=== PATIENT | female | born 1980 | race Caucasian/White ===

== ENCOUNTER 2016-08-21 00:25 | Emergency (ER) | payer OTHER ==
[2016-08-21] MEDS ORDERED: LIDOCAINE 2% W/EPIN INJ 20ML **PRES FREE As Ordered ONE (00:55)
[2016-08-21] MEDS ORDERED: DERMABOND TOPICAL SKIN ADHESIVE As Ordered ONE (00:55)
--- NOTE | 2016-08-21 02:06 | EDDOCDS ---
Physician Documentation [facility] Name: Nannette Ramírez Age: 36 yrs Sex: Female : 1980 Arrival Date: 08/21/2016 Time: 00:25 Bed Triage 1 Private MD: Disposition: 08/21/16 01:56 Patient has left against medical advice. Impression: Laceration without foreign body of other part of head - #1 left eye brow, complicated #2 nasal tissue, Unspecified injury of head, Alcohol abuse with intoxication. - Patients states they are going to Home/Self Care. - Condition is Fair. - Discharge Instructions: Alcohol Use Disorder, Head Injury, Adult, Facial Laceration. Medication Reconciliation, Local Pharmacy Hours form. Follow up: Private Physician; When: Call to arrange an appointment; Reason: Recheck today's complaints, Continuance of care. - Problem is new. - Symptoms are unchanged. - Notes: have sutures removed in 5-7 days, dermabond will dissolve on its own, you are signing out against medical advice and are aware of the risks of possible bleeding in head and including . return to ER at any time if further care is desired Historical: - Allergies: Wellbutrin; - Home Meds: 1. vitamins daily - PMHx: none; - PSHx: none; - Social history: Smoking status: Patient uses tobacco products, heavy tobacco smoker. No barriers to communication noted, The patient speaks fluent Mauritanian, Speaks appropriately for age. - Family history: Not pertinent. - : The pt / caregiver states he / she is not on anticoagulants. Home medication list is obtained from the patient. - Exposure Risk Screening:: None identified. 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 7 in. (170.18 cm) (R); Pain 9/10; 00:30 Body Mass Index 22.87 (66.22 kg, 170.18 cm) [facility] Procedures: :44 Laceration repair:. mo1 Laceration: 01:44 Wound Repair of 3cm ( 1.2in ) full thickness laceration to left eye medial eye brow. mo1 Irregularly shaped.. Distal neuro/vascular/tendon intact. Anesthesia: Local anesthetic administered with 2 mls of 1% lidocaine w/ Epi. Wound prep: Moderate cleansing with hibiclenz by provider. Subcutaneous tissue closed with 1 x 5-0 Vicryl using Simple interrupted sutures. Skin closed with 9 x 6-0 Prolene using Simple interrupted sutures. Dressed with Bacitracin. Patient tolerated well. MDM: 00:54 Dermabond to bedside ordered. mo1 00:54 Lidocaine-Epinephrine 2 %-1:100,000 10 ml Infiltration once; to bedside ordered. mo1 00:54 Dressing ordered. mo1 01:31 CT Head Without Contrast Ordered. EDWY 01:58 Financial registration complete. [facility] Administered Medications: 00:56 Drug: Lidocaine-Epinephrine 10 ml [lidocaine 20 mg/mL (2 %)-epinephrine 1:100,000 jmb injection solution (10 mL)] {Note: administered by Luis Armando AC.} Route: Infiltration; Signatures: Dispatcher [employer] Luis Armando Reddy PA PA mo1 John FranksRN RN Lavonne ThomasRN RN Deisi Villalobos [facility]
--- NOTE | 2016-08-21 02:06 | EDDOCDS ---
Nurse's Notes [facility] Name: Nannette Ramírez Age: 36 yrs Sex: Female : 1980 Arrival Date: 08/21/2016 Time: 00:25 Bed Triage 1 Private MD: Diagnosis: Laceration without foreign body of other part of head-#1 left eye brow, complicated #2 nasal tissue;Unspecified injury of head;Alcohol abuse with intoxication Presentation: 08/21 00:28 Presenting complaint: Patient states: Patient fell, Patient hit ice. Patient reports jmb incident happened an hour ago. Patient stated that she tried to stitch area herself but did not. Adult Sepsis Screening: The patient does not have new or worsening altered mentation. Patient's respiratory rate is less than 22. Systolic blood pressure is greater than 100. Patient has a qSOFA score of 0- Negative Sepsis Screen. Suicide/Homicide risk assessment- the patient denies having any suicidal and/or homicidal ideations and does not present with any other emotional, behavioral or mental health complaints. 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 Transition of care: patient was not received from another setting of care. 00:28 Acuity: ERIKA Level 4 jmb 00:28 Method Of Arrival: Walkin/Carried/Asstd jmb Triage Assessment: 00:30 General: Appears in no apparent distress, Behavior is appropriate for age, cooperative. jmb Pain: Location: above left eye Pain currently is 9 out of 10 on a pain scale. HIV screening NA for this visit Offered previously. Neurological: Level of Consciousness is awake, alert, obeys commands, Oriented to person, place, time, Speech is normal, Facial symmetry appears normal, Facial symmetry: tongue is midline. Respiratory: Airway is patent Respiratory effort is even, unlabored, Respiratory pattern is regular, symmetrical. Derm: Skin laceration to forehead above left eye Skin is pink, warm & dry. Musculoskeletal: Range of motion intact in all extremities. Injury Description: Laceration sustained to above left eye is jagged, is bleeding a small amount. 00:34 General: Smells of alcohol. 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 vitamins daily - PMHx: none; - PSHx: none; - Social history: Smoking status: Patient uses tobacco products, heavy tobacco smoker. No barriers to communication noted, The patient speaks fluent Irish, Speaks appropriately for age. - Family history: Not pertinent. - : The pt / caregiver states he / she is not on anticoagulants. Home medication list is obtained from the patient. - Exposure Risk Screening:: None identified. Screenin:43 Screening information is obtained from the patient. Fall risk: No risks identified. ead Assistance ADL's: requires no assistance with activities of daily living. Abuse/DV Screen: The patient / caregiver reports he/she is: not in a situation that causes fear, pain or injury. Nutritional screening: No deficits noted. Advance Directives: Currently, there is no health care proxy. There is no Power of Casing Wringer Operator. home support is adequate. Assessment: 01:43 General: Appears in no apparent distress, comfortable, Behavior is appropriate for age, ead cooperative. Neurological: Level of Consciousness is awake, alert, Oriented to person, place, time. Respiratory: No deficits noted. Derm: Skin is pink, warm & dry. laceration repaired to left eyebrow by PA. Dermabond applied to laceration to bridge of nose by PA. no bleeding noted. 02:03 General: pt notified nurse that she wanted to leave. Pt advised to wait until CT ead results come back. Pt states "I just wanna get home, the road are getting bad and I live way out there." Provider notified. Pt willing to sign AMA form. . Social Work Consult: 02:01 LWBS/AMA AMA: Patient is refusing further stabilizing treatment at [facility], although cl offered treatment regardless of method of payment or ability to pay. Patient is aware that this action is being undertaken against the advice of the medical staff at [facility]. Pt. has capacity to understand the potential consequences of this choice. pt did notify ED staff. Patient / guardian did sign Refusal of Services form. Pt left before being seen by PSA. Vital Signs: 00:30 BP 141 / 92; Pulse 86; Resp 18; Temp 97.0(T); Pulse Ox 96% on R/A; Weight 66.22 kg (R); jmb Height 5 ft. 7 in. (170.18 cm) (R); Pain 9/10; 00:30 Body Mass Index 22.87 (66.22 kg, 170.18 cm) [facility] Vitals: 00:30 Log In Time: August 21, 2016 at 00:27. [facility] ED Course: 00:27 Patient visited by Teresa Gallego, Reg. hs2 00:27 Patient moved to Waiting hs2 00:29 Triage Initiated jmb 00:34 Patient moved to Triage 1 jmb 00:36 Luis Armando Potter PA is PHCP. mo1 00:36 Ernesto Mcmanus DO is Attending Physician. mo1 01:02 Patient visited by Luis Armando Potter PA. mo1 01:41 Patient visited by Lavonne Hightower RN. ead 01:43 The patient / caregiver is instructed regarding the plan of care and ED course. ead 01:43 No IV's were initiated during this patient's visit. No procedures done that require ead assistance. Administered Medications: 00:56 Drug: Lidocaine-Epinephrine 10 ml [lidocaine 20 mg/mL (2 %)-epinephrine 1:100,000 jmb injection solution (10 mL)] {Note: administered by Luis Armando AC.} Route: Infiltration; Order Results: There are currently no results for this order. Outcome: 01:44 CT Study completed. ead 01:56 Patient left against medical advice. mo1 02:04 Discharge Assessment: Patient awake and alert. obeys commands, Oriented to person, ead place and time. patient administered narcotics - no. The following High Risk Discharge criteria are identified: Yes, Pt left AMA. risk of leaving and benefits of staying explained with pt. pt understands but still wants to leave. PA aware. . The patient is leaving AMA: AMA form signed, Notification of AMA status is made to the charge nurse, the social media assistant, the ED attending physician. Condition: improved. Discharge instructions given to patient, Instructed on discharge instructions, follow up and referral plans. Demonstrated understanding of instructions, Pt was receptive of discharge instructions/ teaching. Property sent home with patient. 02:05 Patient left the ED. ead Signatures: Sarath Angel, PSA PSA cl Luis Armando Potter PA PA mo1 John Franks RN RN jmb Dunaway, Emily,RONEN HARDWICK ead Teresa Gallego, Reg Reg hs2 MTDD
--- NOTE | 2016-08-23 03:06 | EDDOCDS ---
Physician Documentation [facility] Name: Nannette Ramírez Age: 36 yrs Sex: Female : 1980 Arrival Date: 08/21/2016 Time: 00:25 Bed Triage 1 Private MD: Disposition: 08/21/16 01:56 Patient has left against medical advice. Impression: Laceration without foreign body of other part of head - #1 left eye brow, complicated #2 nasal tissue, Unspecified injury of head, Alcohol abuse with intoxication. - Patients states they are going to Home/Self Care. - Condition is Fair. - Discharge Instructions: Alcohol Use Disorder, Head Injury, Adult, Facial Laceration. Medication Reconciliation, Local Pharmacy Hours form. Follow up: Private Physician; When: Call to arrange an appointment; Reason: Recheck today's complaints, Continuance of care. - Problem is new. - Symptoms are unchanged. - Notes: have sutures removed in 5-7 days, dermabond will dissolve on its own, you are signing out against medical advice and are aware of the risks of possible bleeding in head and including . return to ER at any time if further care is desired Historical: - Allergies: Wellbutrin; - Home Meds: 1. vitamins daily - PMHx: none; - PSHx: none; - Social history: Smoking status: Patient uses tobacco products, heavy tobacco smoker. No barriers to communication noted, The patient speaks fluent Italian, Speaks appropriately for age. - Family history: Not pertinent. - : The pt / caregiver states he / she is not on anticoagulants. Home medication list is obtained from the patient. - Exposure Risk Screening:: None identified. 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 7 in. (170.18 cm) (R); Pain 9/10; 00:30 Body Mass Index 22.87 (66.22 kg, 170.18 cm) [facility] Procedures: :44 Laceration repair:. mo1 Laceration: 01:44 Wound Repair of 3cm ( 1.2in ) full thickness laceration to left eye medial eye brow. mo1 Irregularly shaped.. Distal neuro/vascular/tendon intact. Anesthesia: Local anesthetic administered with 2 mls of 1% lidocaine w/ Epi. Wound prep: Moderate cleansing with hibiclenz by provider. Subcutaneous tissue closed with 1 x 5-0 Vicryl using Simple interrupted sutures. Skin closed with 9 x 6-0 Prolene using Simple interrupted sutures. Dressed with Bacitracin. Patient tolerated well. MDM: 00:54 Dermabond to bedside ordered. mo1 00:54 Lidocaine-Epinephrine 2 %-1:100,000 10 ml Infiltration once; to bedside ordered. mo1 00:54 Dressing ordered. mo1 01:31 CT Head Without Contrast Ordered. EDMS 01:58 Financial registration complete. [facility] 02:12 [facility] Payment Agreement was scanned into [employer] and attached to record. [facility] 08/22 07:41 T-Sheet-- Draft Copy was scanned into [employer] and attached to record. 12:20 Refusal of Services was scanned into [employer] and attached to record. gb Administered Medications: 08/21 00:56 Drug: Lidocaine-Epinephrine 10 ml [lidocaine 20 mg/mL (2 %)-epinephrine 1:100,000 jmb injection solution (10 mL)] {Note: administered by Luis Armando AC.} Route: Infiltration; Signatures: Dispatcher [employer] EDNY Delilah Mclaughlin, Reg Reg Luis Armando Potter PA PA mo1 John Franks RN RN jmb Dunaway, Emily, RN RN ead Hook, Sandra [facility] The chart was reviewed and I authenticate all verbal orders and agree with the evaluation and treatment provided.Attachments: 02:12 [facility] Payment Agreement [facility] 08/22 07:41 T-Sheet-- Draft Copy Chart Complete MTDD
--- NOTE | 2016-08-23 03:06 | EDDOCDS ---
Physician Documentation [facility] Name: Nannette Ramírez Age: 36 yrs Sex: Female : 1980 Arrival Date: 08/21/2016 Time: 00:25 Bed Triage 1 Private MD: Disposition: 08/21/16 01:56 Patient has left against medical advice. Impression: Laceration without foreign body of other part of head - #1 left eye brow, complicated #2 nasal tissue, Unspecified injury of head, Alcohol abuse with intoxication. - Patients states they are going to Home/Self Care. - Condition is Fair. - Discharge Instructions: Alcohol Use Disorder, Head Injury, Adult, Facial Laceration. Medication Reconciliation, Local Pharmacy Hours form. Follow up: Private Physician; When: Call to arrange an appointment; Reason: Recheck today's complaints, Continuance of care. - Problem is new. - Symptoms are unchanged. - Notes: have sutures removed in 5-7 days, dermabond will dissolve on its own, you are signing out against medical advice and are aware of the risks of possible bleeding in head and including . return to ER at any time if further care is desired Historical: - Allergies: Wellbutrin; - Home Meds: 1. vitamins daily - PMHx: none; - PSHx: none; - Social history: Smoking status: Patient uses tobacco products, heavy tobacco smoker. No barriers to communication noted, The patient speaks fluent Syrian, Speaks appropriately for age. - Family history: Not pertinent. - : The pt / caregiver states he / she is not on anticoagulants. Home medication list is obtained from the patient. - Exposure Risk Screening:: None identified. 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 7 in. (170.18 cm) (R); Pain 9/10; 00:30 Body Mass Index 22.87 (66.22 kg, 170.18 cm) [facility] Procedures: :44 Laceration repair:. mo1 Laceration: 01:44 Wound Repair of 3cm ( 1.2in ) full thickness laceration to left eye medial eye brow. mo1 Irregularly shaped.. Distal neuro/vascular/tendon intact. Anesthesia: Local anesthetic administered with 2 mls of 1% lidocaine w/ Epi. Wound prep: Moderate cleansing with hibiclenz by provider. Subcutaneous tissue closed with 1 x 5-0 Vicryl using Simple interrupted sutures. Skin closed with 9 x 6-0 Prolene using Simple interrupted sutures. Dressed with Bacitracin. Patient tolerated well. MDM: 00:54 Dermabond to bedside ordered. mo1 00:54 Lidocaine-Epinephrine 2 %-1:100,000 10 ml Infiltration once; to bedside ordered. mo1 00:54 Dressing ordered. mo1 01:31 CT Head Without Contrast Ordered. EDMS 01:58 Financial registration complete. [facility] 02:12 [facility] Payment Agreement was scanned into [employer] and attached to record. [facility] 08/22 07:41 T-Sheet-- Draft Copy was scanned into [employer] and attached to record. 12:20 Refusal of Services was scanned into [employer] and attached to record. gb Administered Medications: 08/21 00:56 Drug: Lidocaine-Epinephrine 10 ml [lidocaine 20 mg/mL (2 %)-epinephrine 1:100,000 jmb injection solution (10 mL)] {Note: administered by Luis Armando AC.} Route: Infiltration; Signatures: Dispatcher [employer] EDOH Delilah Mclaughlin, Reg Reg Luis Armando Potter PA PA mo1 John Franks RN RN jmb Dunaway, Emily, RN RN ead Hook, Sandra [facility] The chart was reviewed and I authenticate all verbal orders and agree with the evaluation and treatment provided.Attachments: 02:12 [facility] Payment Agreement [facility] 08/22 07:41 T-Sheet-- Draft Copy Chart Complete MTDD
--- NOTE | 2016-08-23 03:06 | EDDOCDS ---
Nurse's Notes [facility] Name: Nannette Ramírez Age: 36 yrs Sex: Female : 1980 Arrival Date: 08/21/2016 Time: 00:25 Bed Triage 1 Private MD: Diagnosis: Laceration without foreign body of other part of head-#1 left eye brow, complicated #2 nasal tissue;Unspecified injury of head;Alcohol abuse with intoxication Presentation: 08/21 00:28 Presenting complaint: Patient states: Patient fell, Patient hit ice. Patient reports jmb incident happened an hour ago. Patient stated that she tried to stitch area herself but did not. Adult Sepsis Screening: The patient does not have new or worsening altered mentation. Patient's respiratory rate is less than 22. Systolic blood pressure is greater than 100. Patient has a qSOFA score of 0- Negative Sepsis Screen. Suicide/Homicide risk assessment- the patient denies having any suicidal and/or homicidal ideations and does not present with any other emotional, behavioral or mental health complaints. Status: Patient is not a food service or dependent. Transition of care: patient was not received from another setting of care. 00:28 Acuity: ERIKA Level 4 jmb 00:28 Method Of Arrival: Walkin/Carried/Asstd jmb Triage Assessment: 00:30 General: Appears in no apparent distress, Behavior is appropriate for age, cooperative. jmb Pain: Location: above left eye Pain currently is 9 out of 10 on a pain scale. HIV screening NA for this visit Offered previously. Neurological: Level of Consciousness is awake, alert, obeys commands, Oriented to person, place, time, Speech is normal, Facial symmetry appears normal, Facial symmetry: tongue is midline. Respiratory: Airway is patent Respiratory effort is even, unlabored, Respiratory pattern is regular, symmetrical. Derm: Skin laceration to forehead above left eye Skin is pink, warm & dry. Musculoskeletal: Range of motion intact in all extremities. Injury Description: Laceration sustained to above left eye is jagged, is bleeding a small amount. 00:34 General: Smells of alcohol. 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 vitamins daily - PMHx: none; - PSHx: none; - Social history: Smoking status: Patient uses tobacco products, heavy tobacco smoker. No barriers to communication noted, The patient speaks fluent Togolese, Speaks appropriately for age. - Family history: Not pertinent. - : The pt / caregiver states he / she is not on anticoagulants. Home medication list is obtained from the patient. - Exposure Risk Screening:: None identified. Screenin:43 Screening information is obtained from the patient. Fall risk: No risks identified. ead Assistance ADL's: requires no assistance with activities of daily living. Abuse/DV Screen: The patient / caregiver reports he/she is: not in a situation that causes fear, pain or injury. Nutritional screening: No deficits noted. Advance Directives: Currently, there is no health care proxy. There is no Power of Hand Nailer. home support is adequate. Assessment: 01:43 General: Appears in no apparent distress, comfortable, Behavior is appropriate for age, ead cooperative. Neurological: Level of Consciousness is awake, alert, Oriented to person, place, time. Respiratory: No deficits noted. Derm: Skin is pink, warm & dry. laceration repaired to left eyebrow by PA. Dermabond applied to laceration to bridge of nose by PA. no bleeding noted. 02:03 General: pt notified nurse that she wanted to leave. Pt advised to wait until CT ead results come back. Pt states "I just wanna get home, the road are getting bad and I live way out there." Provider notified. Pt willing to sign AMA form. . Social Work Consult: 02:01 LWBS/AMA AMA: Patient is refusing further stabilizing treatment at [facility], although cl offered treatment regardless of method of payment or ability to pay. Patient is aware that this action is being undertaken against the advice of the medical staff at [facility]. Pt. has capacity to understand the potential consequences of this choice. pt did notify ED staff. Patient / guardian did sign Refusal of Services form. Pt left before being seen by PSA. Vital Signs: 00:30 BP 141 / 92; Pulse 86; Resp 18; Temp 97.0(T); Pulse Ox 96% on R/A; Weight 66.22 kg (R); jmb Height 5 ft. 7 in. (170.18 cm) (R); Pain 9/10; 00:30 Body Mass Index 22.87 (66.22 kg, 170.18 cm) [facility] Vitals: 00:30 Log In Time: August 21, 2016 at 00:27. [facility] ED Course: 00:27 Patient visited by Teresa Gallego Reg. hs2 00:27 Patient moved to Waiting hs2 00:29 Triage Initiated jmb 00:34 Patient moved to Triage 1 jmb 00:36 Luis Armando Potter PA is PHCP. mo1 00:36 Ernesto Mcmanus DO is Attending Physician. mo1 01:02 Patient visited by Luis Armando Potter PA. mo1 01:41 Patient visited by Lavonne Hightower RN. ead 01:43 The patient / caregiver is instructed regarding the plan of care and ED course. ead 01:43 No IV's were initiated during this patient's visit. No procedures done that require ead assistance. 02:10 Patient name changed from Nannette\\S\\\\S\\Darrell\\S\\ to Nannette\\S\\Sherron\\S\\Darrell. EDMS 02:12 [facility] Payment Agreement was scanned into [employer] and attached to record. [facility] 04:01 CT Head Without Contrast Returned. EDMS 08/22 07:41 T-Sheet-- Draft Copy was scanned into [employer] and attached to record. 12:20 Refusal of Services was scanned into [employer] and attached to record. gb Administered Medications: 08/21 00:56 Drug: Lidocaine-Epinephrine 10 ml [lidocaine 20 mg/mL (2 %)-epinephrine 1:100,000 jmb injection solution (10 mL)] {Note: administered by Luis Armando AC.} Route: Infiltration; Attachments: 12:20 Refusal of Services gb Order Results: Radiology Order: CT Head Without Contrast Test: CT Head Without Contrast REASON FOR EXAMINATION: Trauma; ; CLINICAL HISTORY: Head trauma.; TECHNIQUE: Multiple axial brain CT scan sections were obtained from base to vertex without contrast a; dministration.; COMMENTS:; There is no evidence of skull fracture.; The study shows normal configuration of sella turcica. There are no intra or extra-axial collections.; There is no mass effect or midline shift. There is no evidence of hematoma formation. No hydrocephal; us is present. No abnormal calcifications are noted.; No significant abnormalities are seen either in the posterior fossa or supratentorial compartment.; The sinuses and mastoid air cells are patent.; IMPRESSION:; No evidence of acute intracranial pathology. No intracranial hemorrhage or skull fracture.; Thank you for your kind referral of this patient.; ; Outcome: 08/21 01:44 CT Study completed. ead 01:56 Patient left against medical advice. mo1 02:04 Discharge Assessment: Patient awake and alert. obeys commands, Oriented to person, ead place and time. patient administered narcotics - no. The following High Risk Discharge criteria are identified: Yes, Pt left AMA. risk of leaving and benefits of staying explained with pt. pt understands but still wants to leave. PA aware. . The patient is leaving AMA: AMA form signed, Notification of AMA status is made to the charge nurse, the forensic social worker, the ED attending physician. Condition: improved. Discharge instructions given to patient, Instructed on discharge instructions, follow up and referral plans. Demonstrated understanding of instructions, Pt was receptive of discharge instructions/ teaching. Property sent home with patient. 02:05 Patient left the ED. ead Signatures: Dispatcher [employer] EDMS Sarath Angel, ABIGAIL PSA Delilah Domínguez, Reg Reg gb Luis Armando Potter PA PA mo1 John Franks RN RN jmb Dunaway, Emily, RN RN ead Hook, Sandra slh Stanton, Hillary, Reg Reg hs2 Chart Complete MTDD
== END 2016-08-21 01:55 | disposition left against medical advice (07) ==
LOC: M ED 00:25
DX: S01.112A Laceration without foreign body of left eyelid and periocular area, initial encounter (principal); W00.9XXA Unspecified fall due to ice and snow, initial encounter; Y92.019 Unspecified place in single-family (private) house as the place of occurrence of the external cause; Y93.89 Activity, other specified; Y99.8 Other external cause status; Z72.0 Tobacco use; Z79.899 Other long term (current) drug therapy; Z88.8 Allergy status to other drugs, medicaments and biological substances

== ENCOUNTER 2019-05-10 05:13 | Emergency (ER) | payer OTHER ==
[~2019-05-10] VITALS: Ht 177.8 cm; Wt 70.5 kg
[2019-05-10] MEDS ORDERED: HYDR25OIN TOP (06:58)
[2019-05-10 07:06] VITALS: BP 133/98
== END 2019-05-10 07:25 | disposition home or self-care (01) ==
LOC: M ED 05:13
DX: L23.7 Allergic contact dermatitis due to plants, except food (principal); Z88.8 Allergy status to other drugs, medicaments and biological substances; Z91.030 Bee allergy status; F17.210 Nicotine dependence, cigarettes, uncomplicated

== ENCOUNTER → 2025-03-03 | Outpatient (CLI) | payer OTHER ==
[~2025-03-03] MED LIST: HYDR25OIN TOP
[2025-03-03 10:48] LABS: PLATELET COUNT, AUTOMATED 344 10^3/uL (150-450)
[2025-03-03 11:16] LABS: ALT/SGPT 25 U/L (7.0-40); AST/SGOT 21 U/L (<34); CALCIUM LEVEL 9.4 MG/DL (8.5-10.1); CARBON DIOXIDE LEVEL 26 MMOL/L (20-31); CHLORIDE LEVEL 106 MMOL/L (98-107); CREATININE FOR GFR 0.64 MG/DL (0.55-1.30); GLOMERULAR FILTRATION RATE > 90.0 (>58); POTASSIUM SERUM 4.6 MMOL/L (3.5-5.1); SODIUM LEVEL 142 MMOL/L (136-145)
== END ==
LOC: M LAB 09:44
PROVIDERS: ATTEND Emergency Medicine
DX: R35.81 Nocturnal polyuria (principal); R63.1 Polydipsia

== ENCOUNTER 2025-03-18 10:03 | Emergency (ER) | payer OTHER ==
[~2025-03-18] VITALS: Ht 172.7 cm; Wt 58.0 kg
[2025-03-18] MEDS ORDERED: MELO15TA28 (10:14)
[2025-03-18 11:22] LABS: BASO # 0.1 10^3/uL (0.0-0.2); BASO % 0.8 % (0.0-1.0); EOS # 0.0 10^3/uL (0.0-0.5); EOS % 0.1 % (0.0-3.0); LYMPH # 2.3 10^3/uL (1.5-5.0); LYMPH % 25.9 % (24.0-44.0); MONO # 0.5 10^3/uL (0.0-0.8); MONO % 5.3 % (2.0-8.0); NEUTROPHILS # 6.0 10^3/uL (1.5-8.5); NEUTROPHILS % 67.7 % (36.0-66.0); PLATELET COUNT, AUTOMATED 383 10^3/uL (150-450)
[2025-03-18 11:41] LABS: ERYTHROCYTE SEDIMENTATION RATE 36 mm/hr (0-20); RHEUMATOID FACTOR QUANT < 3.5 IU/ML (<14)
[2025-03-18 11:42] LABS: C REACTIVE PROTEIN QUANTITATIV 1.11 MG/DL (<1.0)
[2025-03-18 11:44] LABS: ALT/SGPT 20 U/L (7.0-40); AST/SGOT 15 U/L (<34); CALCIUM LEVEL 9.1 MG/DL (8.5-10.1); CARBON DIOXIDE LEVEL 25 MMOL/L (20-31); CHLORIDE LEVEL 107 MMOL/L (98-107); CREATININE FOR GFR 0.58 MG/DL (0.55-1.30); GLOMERULAR FILTRATION RATE > 90.0 (>58); POTASSIUM SERUM 4.4 MMOL/L (3.5-5.1); SODIUM LEVEL 141 MMOL/L (136-145)
[2025-03-18 12:01] LABS: HCG, SERUM QUALITATIVE NEGATIVE (NEGATIVE)
[2025-03-18] MEDS ORDERED: DOXY-441 PO (12:33)
[2025-03-18] MEDS: DOXYCYCLINE HYCLATE 100 MG TABLET PO ONE (12:33)
[2025-03-18] MEDS ORDERED: NAPR-837 PO (12:33)
[2025-03-18] MEDS: KETOROLAC 30 MG/ML 1 ML VIAL IV ONE (12:33)
[2025-03-18 13:10] VITALS: BP 130/83; TEMP 98.4; O2SAT 100
[2025-03-22 22:32] LABS: LYME TOTAL ANTIBODY CIA 5.95 Index (<=0.90)
[2025-03-23 06:18] LABS: BABESIA MICROTI PCR Not Detected (Not Detected)
[2025-03-23 20:48] LABS: EHRLICHIA CAFFEENSIS IGM <1:20 (<1:20)
[2025-03-24 01:08] LABS: LYME AB IGG BY CIA 2.88 Index (<=0.90); LYME AB IGM BY CIA 4.83 Index (<=0.90)
== END 2025-03-18 13:13 | disposition home or self-care (01) ==
LOC: M ED 10:03
DX: R21 Rash and other nonspecific skin eruption (principal); F17.200 Nicotine dependence, unspecified, uncomplicated; Z88.8 Allergy status to other drugs, medicaments and biological substances; Z91.030 Bee allergy status
CPT/HCPCS: 80048; 80076; 84703; 85025; 85652; 86038; 86140; 86431; 86618; 86666; 87469; 96374; 99284; J1885